=== PATIENT | male | born 1970 | race Asian ===

== ENCOUNTER 2024-01-05 09:18 | Emergency (ER) | payer SELFPAY ==
[2024-01-05 09:38] VITALS: BMI 19.0
[2024-01-05] MEDS ORDERED: ASPIRIN 81 MG CHEWABLE TABLETS ONE (10:22)
[2024-01-05] MEDS ORDERED: ACETAMINOPHEN INJECTION 100 ML ONE (10:22)
[2024-01-05] MEDS: ASPIRIN 81 MG CHEWABLE TABLETS PO ONE (10:25)
[2024-01-05] MEDS: ACETAMINOPHEN 1000 MG/100 ML BAG IVPB ONE (10:25)
[2024-01-05 10:48] LABS: BASO % 0.3 % (0-2.0); EOS % 5.3 % (0-4.5); HEMATOCRIT 45.2 % (35.4-49); HEMOGLOBIN 14.3 GM/dL (11.7-16.9); LYMPH % 31.7 % (8-40); MCH 22.1 pg (25.7-33.7); MCHC 31.6 g/dl (32.0-35.9); MEAN PLT VOLUME 8.8 fl (7.5-11.1); MONO % 8.5 % (3.8-10.2); NEUT % 54.2 % (42.8-82.8); PLATELET COUNT 74 10^3/uL (134-434); RBC 6.45 M/mm3 (4.00-5.60); RDW 17.2 % (11.9-15.9); WHITE BLOOD COUNT 5.5 K/mm3 (4.0-10.0)
[2024-01-05 11:05] LABS: POTASSIUM 4.2 mmol/L (3.5-5.1)
[2024-01-05 11:07] LABS: ALBUMIN 3.7 g/dl (3.4-5.0); BLOOD UREA NITROGEN 6.8 mg/dL (7-18); CALCIUM 9.5 mg/dL (8.5-10.1)
[2024-01-05 11:10] LABS: CREATININE 0.9 mg/dL (0.55-1.3)
[2024-01-05 11:12] LABS: TOT PROT 8.4 g/dl (6.4-8.2)
[2024-01-05 11:15] LABS: N-TERMINAL BNP 10.9 pg/ml (5-125)
[2024-01-05 13:28] LABS: HIV INTERPRETATION NEGATIVE (NEGATIVE)
[2024-01-05 14:13] VITALS: TEMP 98.1
[2024-01-05 15:26] VITALS: BP 134/77; PULSE 58; RESP 16
== END 2024-01-05 15:27 | disposition home or self-care (01) ==
LOC: JER 09:18
PROC: 3E033NZ Introduction of Analgesics, Hypnotics, Sedatives into Peripheral Vein, Percutaneous Approach (ICD-10-PCS; principal; 2024-01-05)
DX: R07.81 Pleurodynia (principal)
CPT/HCPCS: 36415; 71045-TC-FY; 71275-TC; 80053; 82140; 83880; 84484; 85025; 86803; 87389; 93005; 93010; 99285-25; J0131; Q9967